=== PATIENT | female | born 2000 | race Two or more races ===

== ENCOUNTER 2020-04-03 15:50 | Emergency (ER) | payer MEDICAID ==
[2020-04-03 16:10] VITALS: BP 124/78
--- NOTE | 2020-04-03 16:19 | ED Physician Documentation ---
History of Present Illness - Stated complaint Stated Complaint: DIARRHEA - Chief complaint Chief Complaint: General - History obtained from History obtained from: Patient - Additonal information Additional information: She had a stomachache on both sides last night with diarrhea. She is feeling better now but wants to go to work and needs a work note that says she is okay to return to work. She is not had a fever or respiratory symptoms. She does not handle food. Review of Systems Constitutional: denies: Fever, Chills GI: denies: Nausea, Vomiting, Constipation, Bloody / black stool PD PAST MEDICAL HISTORY - Past Medical History Past Medical History: Yes - Past Surgical History Past Surgical History: No - Present Medications Home Medications: Ambulatory Orders Medication Instructions Recorded Confirmed No Known Home Medications 04/03/20 04/03/20 - Allergies Allergies/Adverse Reactions: Allergies Allergy/AdvReac Type Severity Reaction Status Date / Time No Known Drug Allergies Allergy Verified 04/03/20 15:57 - Social History Does the pt smoke?: Yes Smoking Status: Current every day smoker Does the pt drink ETOH?: No Does the pt have substance abuse?: No - Immunizations Immunizations are current?: Yes - POLST Patient has POLST: No PD ED PE NORMAL - Vitals Vital signs reviewed: Yes - General General: Alert and oriented X 3, No acute distress - Abdomen Abdomen: Normal bowel sounds, Soft, Non tender - Derm Derm: Normal color, Warm and dry - Extremities Extremities: No edema, No calf tenderness / cord - Neuro Neuro: Alert and oriented X 3, Normal speech Results - Vitals Vitals: Vital Signs - 24 hr 04/03/20 04/03/20 15:54 16:09 Temperature 36.5 C Heart Rate 101 H 103 H Respiratory 16 16 Rate Blood Pressure 130/101 H 124/78 O2 Saturation 100 98 Oxygen O2 Source Room air Departure - Departure Disposition: 01 Home, Self Care Clinical Impression: Abdominal pain Qualifiers: Abdominal location: generalized Qualified Code(s): R10.84 - Generalized abdominal pain Condition: Good Record reviewed to determine appropriate education?: Yes Instructions: ED Abdominal Pain Unkn Cause Comments: Return if you worsen Forms: Activity restrictions
== END 2020-04-03 16:28 | disposition home or self-care (01) ==
LOC: ED 15:50
DX: Z02.89 Encounter for other administrative examinations (principal); F17.200 Nicotine dependence, unspecified, uncomplicated; R10.84 Generalized abdominal pain
CPT/HCPCS: 99282; 99283